=== PATIENT | female | born 1955 | race Caucasian/White ===

== ENCOUNTER 2016-09-23 21:17 | Emergency (ER) | payer OTHER ==
[~2016-09-23] VITALS: Ht 160 cm; Wt 67.3 kg
[~2016-09-23 21:17] MED LIST: ADIPEX-P37.5 M1 PO; ALBUTEROL SULF8.5 GM IH; AMITRIPTYLINE HCL; AMLODIPINE BES2.5 MG PO; BUMETANIDE2 MG PO; BUMEX2 MG; BUPROPION XL150 MG PO; BUPROPION XL300 MG PO; CITALOPRAM HBR20 MG PO; CLOBETASOL PROP60 GM TP; DESOXIMETASONE15 G1 TP; ELAVIL75 MG PO; ENDOCET 7.5-321 EACH; ENDOCET 7.5-501 EACH PO; ERGOCALCIF50000 UNIT PO; FENTANYL1 EAC2 TD; GUAIFENESIN WI120 ML PO; HYDROCHLOROTHIA25 MG PO; INDERAL60 MG PO; LEVOTHYROXINE88 MCG PO; LISINOPRIL20 MG PO; LOSARTAN POTASS50 MG PO; MELOXICAM15 MG PO; MICRO-K10 ME2 PO; NAPROXEN SODIU550 MG; OXYCODONE HCL15 MG; OXYCODONE-APAP1 EAC6; PANTOPRAZOLE SO40 MG PO; PRAVASTATIN SOD40 MG PO; PROPRANOLOL HCL60 M1 PO; PROPRANOLOL HCL60 MG PO; SINGULAIR10 MG PO; TIZANIDINE HCL4 MG PO; TOPAMAX100 MG PO; TOPIRAMATE100 MG; VALACYCLOVIR500 MG; VALACYCLOVIR500 MG PO; VICODIN 5-3001 EACH PO; ZANAFLEX4 MG PO; ZOFRAN4 MG PO
[2016-09-23 21:55] LABS: EOSINOPHIL (%) 1.6 % (0-5); EOSINOPHIL COUNT 0.1 K/uL (0-0.3); HEMATOCRIT 35.9 % (36.0-46.0); IMMATURE GRANULOCYTE (%) 0.3 % (0.0-0.7); INSTRUMENT ABS NEUTROPHIL CT 4.8 K/uL; LYMPHOCYTE COUNT 1.9 K/uL (1.0-2.8); MCH 31.8 PG (29.0-34.0); MCHC 32.9 G/DL (30.0-36.0); MCV 96.8 FL (83-99); MEAN PLAT.VOLUME 10.1 uM^3 (9.5-12.4); MONOCYTE (%) 7.5 % (3-12); MONOCYTE COUNT 0.6 K/uL (0-0.8); NEUTROPHIL (%) 64.3 % (45-76); NEUTROPHIL COUNT 4.8 K/uL (1.8-6.4); PLATELET COUNT 281 K/uL (156-360); RBC DIS.WIDTH-CV 14.1 % (11.8-14.6); RBC DIS.WIDTH-SD 50.1 % (39-53); RED BLOOD COUNT 3.71 M/uL (3.80-5.20); WHITE BLOOD COUNT 7.5 K/uL (4.1-10.2)
[2016-09-23 22:06] LABS: CHLORIDE 102 mEq/L (99-109); POTASSIUM 2.8 mEq/L (3.7-5.4)
[2016-09-23 22:07] LABS: SODIUM 138 mEq/L (136-147)
[2016-09-23 22:09] LABS: GLUCOSE 85 mg/dL (70-99)
[2016-09-23 22:10] LABS: ANION GAP 12 MEQ/L (2-14)
[2016-09-23 22:11] LABS: TOTAL BILIRUBIN 0.4 mg/dL (0.0-1.0)
[2016-09-23 22:12] LABS: ALKALINE PHOSPHATASE 111 IU/L (3-129); GFR ESTIMATE (CALCULATED) 49 mL/min/
[2016-09-23 22:14] LABS: UREA NITROGEN (BUN) 13 mg/dL (9-23)
[2016-09-23 22:16] LABS: LIPASE 13 U/L (1.0-51.0)
[2016-09-23 23:17] LABS: CREATINE KINASE 240 IU/L (1-294)
[2016-09-24 02:09] LABS: BILIRUBIN NEGATIVE; BLOOD NEGATIVE; COLOR YELLOW ((YELLOW)); GLUCOSE (STRIP) NEGATIVE; KETONES 20; LEUKOCYTES NEGATIVE; NITRITE NEGATIVE; PROTEIN (STRIP) 30; SPECIFIC GRAVITY 1.018 (1.000-1.030); UROBILINOGEN 0.2 MG/DL (0.2-1.0)
[2016-09-24 02:12] LABS: ADD MIUA? NO
[2016-09-24] MEDS ORDERED: KLOR-CON 1010 ME1 PO (02:17)
[2016-09-24] MEDS ORDERED: PHENERGAN25 MG PR (02:17)
[2016-09-24] MEDS ORDERED: PROMETHAZINE HC25 M1 PO (02:17)
[2016-09-24 02:35] VITALS: BP 109/63
== END 2016-09-24 02:35 | disposition home or self-care (01) ==
LOC: EME 21:17
PROVIDERS: Physician Assistant
DX: R11.2 Nausea with vomiting, unspecified (principal); E87.6 Hypokalemia; I10 Essential (primary) hypertension; Z90.710 Acquired absence of both cervix and uterus; Z90.49 Acquired absence of other specified parts of digestive tract; F17.200 Nicotine dependence, unspecified, uncomplicated
CPT/HCPCS: 74022; 74176; 74177; 80053; 81003; 82550; 83605; 83690; 85025; 93005; 99281; 99285; J1200; J2765; J3480; J7030; Q0169

== ENCOUNTER 2017-03-18 15:45 | Emergency (ER) | payer OTHER ==
[~2017-03-18] VITALS: Ht 160 cm; Wt 64.6 kg
[~2017-03-18 15:45] MED LIST changes: +KLOR-CON 1010 ME1 PO; +PHENERGAN25 MG PR; +PROMETHAZINE HC25 M1 PO
[2017-03-18 16:39] LABS: EOSINOPHIL (%) 3.4 % (0-5); EOSINOPHIL COUNT 0.2 K/uL (0-0.3); HEMATOCRIT 34.6 % (36.0-46.0); IMMATURE GRANULOCYTE (%) 0.4 % (0.0-0.7); INSTRUMENT ABS NEUTROPHIL CT 3.6 K/uL; LYMPHOCYTE COUNT 1.5 K/uL (1.0-2.8); MCH 32.8 PG (29.0-34.0); MCHC 33.2 G/DL (30.0-36.0); MCV 98.6 FL (83-99); MEAN PLAT.VOLUME 10.6 uM^3 (9.5-12.4); MONOCYTE COUNT 0.3 K/uL (0-0.8); NEUTROPHIL (%) 63.1 % (45-76); NEUTROPHIL COUNT 3.6 K/uL (1.8-6.4); PLATELET COUNT 232 K/uL (156-360); RBC DIS.WIDTH-CV 14.6 % (11.8-14.6); RBC DIS.WIDTH-SD 53.1 % (39-53); RED BLOOD COUNT 3.51 M/uL (3.80-5.20); WHITE BLOOD COUNT 5.7 K/uL (4.1-10.2)
[2017-03-18 16:45] LABS: ADD MEDTOX COMMENT Y; AMPHETAMINE PRESUMPTIVE POSITIVE (500 ng/mL); BARBITURATES NEGATIVE (200 ng/mL); BENZODIAZEPINES NEGATIVE (150 ng/mL); COCAINE NEGATIVE (150 ng/mL); INTERNAL CONTROLS VALID? YES; METHADONE NEGATIVE (200 ng/mL); METHAMPHETAMINE NEGATIVE (500 ng/mL); OPIATES (MORPHINE) NEGATIVE (100 ng/mL); OXYCODONE PRESUMPTIVE POSITIVE (100 ng/mL); PHENCYCLIDINE NEGATIVE (25 ng/mL); PROPOXYPHENE NEGATIVE (300 ng/mL); THC CANNABINOIDS NEGATIVE (50 ng/mL); TRICYCLIC ANTIDEPRESSANTS PRESUMPTIVE POSITIVE (300 ng/mL)
[2017-03-18 16:49] LABS: CHLORIDE 107 mEq/L (99-109); POTASSIUM 3.5 mEq/L (3.7-5.4); SODIUM 141 mEq/L (136-147)
[2017-03-18 16:52] LABS: GLUCOSE 100 mg/dL (70-99)
[2017-03-18 16:53] LABS: ANION GAP 9 MEQ/L (2-14); TOTAL BILIRUBIN 0.2 mg/dL (0.0-1.0)
[2017-03-18 16:54] LABS: SERUM ETHYL ALCOHOL < 10 mg/dL
[2017-03-18 16:55] LABS: ALKALINE PHOSPHATASE 79 IU/L (3-129); GFR ESTIMATE (CALCULATED) 38 mL/min/
[2017-03-18 16:56] LABS: UREA NITROGEN (BUN) 15 mg/dL (9-23)
[2017-03-18 23:11] VITALS: BP 99/55
== END 2017-03-18 23:12 | disposition home or self-care (01) ==
LOC: EME 15:45
PROVIDERS: Emergency Medicine
DX: R56.9 Unspecified convulsions (principal); R55 Syncope and collapse; R51 Headache; I12.9 Hypertensive chronic kidney disease with stage 1 through stage 4 chronic kidney disease, or unspecified chronic kidney disease; N18.3 Chronic kidney disease, stage 3 (moderate); E11.22 Type 2 diabetes mellitus with diabetic chronic kidney disease; E06.3 Autoimmune thyroiditis; F17.200 Nicotine dependence, unspecified, uncomplicated; K21.9 Gastro-esophageal reflux disease without esophagitis
CPT/HCPCS: 70450; 80053; 84443; 84999; 85025; 99281; 99285; G0480; J1885; J2765; J7030

== ENCOUNTER 2017-11-04 05:29 | Observation (INO) | payer OTHER ==
[~2017-11-04] VITALS: Ht 160 cm; Wt 68.8 kg
[~2017-11-04 05:29] MED LIST changes: +LEVOTHYROXINE100 MCG PO; -LEVOTHYROXINE88 MCG PO; +PROAIR RESPICL90 MCG IH; -PROPRANOLOL HCL60 M1 PO; +VENTOLIN HFA18 GM IH; +WELLBUTRIN XL150 MG PO
[2017-11-04 06:54] LABS: HEMATOCRIT 33.9 % (36.0-46.0); HEMOGLOBIN 11.1 G/DL (11.9-15.5); MCH 33.3 PG (29.0-34.0); MCHC 32.7 G/DL (30.0-36.0); MCV 101.8 FL (83-99); PLATELET COUNT 208 K/uL (156-360); RBC DIS.WIDTH-SD 56.4 % (39-53); RED BLOOD COUNT 3.33 M/uL (3.80-5.20); WHITE BLOOD COUNT 6.6 K/uL (4.1-10.2)
[2017-11-04 07:32] LABS: TROP-I INTERPRETATION NEGATIVE; TROPONIN-I < 0.01 ng/mL (0.0-0.30)
[2017-11-04 07:37] LABS: CHLORIDE 111 MEQ/L (99-109); CREATININE 1.1 MG/DL (0.6-1.3); GFR ESTIMATE (CALCULATED) 54 mL/min/; GLUCOSE 100 mg/dL (70-99); POTASSIUM 3.6 MEQ/L (3.7-5.4); SODIUM 142 MEQ/L (136-147); UREA NITROGEN (BUN) 15 mg/dL (9-23)
[2017-11-04] MEDS ORDERED: PRAVASTATIN SOD40 MG PO (07:49)
[2017-11-04] MEDS ORDERED: OXYCODONE-APAP1 EACH PO (07:50)
[2017-11-04] MEDS ORDERED: DICYCLOMINE HCL10 MG PO (07:51)
[2017-11-04] MEDS ORDERED: KLOR-CON 1010 ME1 PO (07:52)
[2017-11-04] MEDS ORDERED: PROMETHAZINE HC25 M1 PO (07:53)
[2017-11-04] MEDS ORDERED: ALBUTEROL2.5 MG/3 M IH (07:54)
[2017-11-04] MEDS ORDERED: SYMBICORT60 INHALAT IH (07:54)
[2017-11-04] MEDS ORDERED: QUETIAPINE FUM100 MG PO (07:55)
[2017-11-04] MEDS ORDERED: NIFEDIPINE ER30 MG PO (07:55)
[2017-11-04] MEDS ORDERED: CITALOPRAM HBR20 MG PO (07:56)
[2017-11-04] MEDS ORDERED: ERGOCALCIF50000 UNIT PO (07:56)
[2017-11-04] MEDS ORDERED: DESOXIMETASONE15 G1 TP (07:58)
[2017-11-04 09:15] LABS: APPEARANCE CLEAR ((CLEAR)); BILIRUBIN NEGATIVE; BLOOD NEGATIVE; COLOR YELLOW ((YELLOW)); GLUCOSE (STRIP) NEGATIVE; KETONES NEGATIVE; LEUKOCYTES NEGATIVE; NITRITE NEGATIVE; PROTEIN (STRIP) NEGATIVE; UCUL ADDED? NO; UROBILINOGEN 0.2 MG/DL (0.2-1.0)
[2017-11-04 10:01] LABS: IMM.RETIC FRACTION 15.2 % (3-19); RETIC HGB EQUIVALENT 43.5 (28-36); RETICULOCYTE COUNT 1.6 % (0.5-1.8)
[2017-11-04 10:03] LABS: IRON 53 MCG/DL (35-150); TRANSFERRIN (TIBC) 217.3 mg/dL (215-380); TRANSFERRIN SATUR. 24 % (20-55)
[2017-11-04 10:07] VITALS: BP 102/60
[2017-11-04 10:20] LABS: FERRITIN 18 NG/ML (10-291)
[2017-11-04 11:31] LABS: TROP-I INTERPRETATION NEGATIVE; TROPONIN-I < 0.01 ng/mL (0.0-0.30)
[2017-11-04 11:53] LABS: FOLIC ACID (FOLATE) 5.6 NG/ML (5.0-22.0)
[2017-11-04 12:01] VITALS: BP 101/57
[2017-11-04 16:26] VITALS: BP 105/60
[2017-11-04 18:33] LABS: TROP-I INTERPRETATION NEGATIVE; TROPONIN-I < 0.01 ng/mL (0.0-0.30)
[2017-11-04 20:20] VITALS: BP 103/64
[2017-11-05 00:01] VITALS: BP 92/54
[2017-11-05 00:55] LABS: TROP-I INTERPRETATION NEGATIVE; TROPONIN-I < 0.01 ng/mL (0.0-0.30)
[2017-11-05 05:05] VITALS: BP 124/70
[2017-11-05 08:02] VITALS: BP 104/69
[2017-11-05 08:51] LABS: HEMATOCRIT 36.4 % (36.0-46.0); HEMOGLOBIN 11.1 G/DL (11.9-15.5); MCH 32.4 PG (29.0-34.0); MCHC 30.5 G/DL (30.0-36.0); MCV 106.1 FL (83-99); PLATELET COUNT 219 K/uL (156-360); RBC DIS.WIDTH-CV 15.3 % (11.8-14.6); RBC DIS.WIDTH-SD 60.3 % (39-53); RED BLOOD COUNT 3.43 M/uL (3.80-5.20); WHITE BLOOD COUNT 8.2 K/uL (4.1-10.2)
[2017-11-05 09:09] LABS: CHLORIDE 111 MEQ/L (99-109); CREATININE 1.2 MG/DL (0.6-1.3); GFR ESTIMATE (CALCULATED) 49 mL/min/; GLUCOSE 85 mg/dL (70-99); MAGNESIUM 2.1 mg/dl (1.3-2.7); SODIUM 142 MEQ/L (136-147); UREA NITROGEN (BUN) 17 mg/dL (9-23)
[2017-11-05 09:26] LABS: POTASSIUM 5.3 MEQ/L (3.7-5.4)
[2017-11-05 11:57] VITALS: BP 112/62
[2017-11-05 15:47] VITALS: BP 136/61
[2017-11-05 20:00] VITALS: BP 103/57
[2017-11-06 00:40] VITALS: BP 114/62
[2017-11-06 04:27] VITALS: BP 109/56
[2017-11-06 05:26] LABS: BASOPHIL (%) 0.6 % (0-1); BASOPHIL COUNT 0.1 K/uL (0-0.1); EOSINOPHIL (%) 5.2 % (0-5); EOSINOPHIL COUNT 0.4 K/uL (0-0.3); HEMATOCRIT 34.1 % (36.0-46.0); HEMOGLOBIN 10.7 G/DL (11.9-15.5); IMMATURE GRANULOCYTE (%) 0.2 % (0.0-0.7); LYMPHOCYTE (%) 30.7 % (15-42); LYMPHOCYTE COUNT 2.5 K/uL (1.0-2.8); MCH 32.8 PG (29.0-34.0); MCHC 31.4 G/DL (30.0-36.0); MCV 104.6 FL (83-99); MONOCYTE (%) 6.6 % (3-12); MONOCYTE COUNT 0.5 K/uL (0-0.8); NEUTROPHIL (%) 56.7 % (45-76); NEUTROPHIL COUNT 4.7 K/uL (1.8-6.4); PLATELET COUNT 201 K/uL (156-360); RBC DIS.WIDTH-CV 14.8 % (11.8-14.6); RBC DIS.WIDTH-SD 57.4 % (39-53); RED BLOOD COUNT 3.26 M/uL (3.80-5.20); WHITE BLOOD COUNT 8.2 K/uL (4.1-10.2)
[2017-11-06 05:57] LABS: CHLORIDE 108 MEQ/L (99-109); CREATININE 1.1 MG/DL (0.6-1.3); GFR ESTIMATE (CALCULATED) 54 mL/min/; GLUCOSE 76 mg/dL (70-99); POTASSIUM 5.2 MEQ/L (3.7-5.4); SODIUM 138 MEQ/L (136-147); UREA NITROGEN (BUN) 17 mg/dL (9-23)
[2017-11-06 07:40] VITALS: BP 122/59
[2017-11-06] MEDS ORDERED: FOLIC ACID1 MG PO (09:10)
[2017-11-06] MEDS ORDERED: CYANOCOBAL1000 MCG/2 SC (09:12)
[2017-11-06 11:47] VITALS: BP 104/53
== END 2017-11-06 12:24 | disposition home or self-care (01) ==
LOC: EME 05:29 → EDOF 08:08 → ENRESERV 08:09 → 4SOUTH 09:53
PROVIDERS: Hospitalist; Internal Medicine
DX: R07.89 Other chest pain (principal); F33.1 Major depressive disorder, recurrent, moderate; E53.8 Deficiency of other specified B group vitamins; I95.1 Orthostatic hypotension; E87.6 Hypokalemia; E86.0 Dehydration; R94.31 Abnormal electrocardiogram [ECG] [EKG]; E78.5 Hyperlipidemia, unspecified; D64.9 Anemia, unspecified; F17.210 Nicotine dependence, cigarettes, uncomplicated; I12.9 Hypertensive chronic kidney disease with stage 1 through stage 4 chronic kidney disease, or unspecified chronic kidney disease; N18.3 Chronic kidney disease, stage 3 (moderate); K22.70 Barrett's esophagus without dysplasia; R60.0 Localized edema; R06.02 Shortness of breath; R11.2 Nausea with vomiting, unspecified; R42 Dizziness and giddiness; R00.2 Palpitations; E03.9 Hypothyroidism, unspecified; G89.29 Other chronic pain; M54.9 Dorsalgia, unspecified; Z79.891 Long term (current) use of opiate analgesic; J45.909 Unspecified asthma, uncomplicated; I07.1 Rheumatic tricuspid insufficiency; Z90.49 Acquired absence of other specified parts of digestive tract; Z90.710 Acquired absence of both cervix and uterus; Z82.49 Family history of ischemic heart disease and other diseases of the circulatory system; Z83.3 Family history of diabetes mellitus
CPT/HCPCS: 71046; 80048; 81003; 82607; 82728; 82746; 83540; 83735; 84466; 84484; 85025; 85027; 85046; 85379; 93005; 94640; 94640 76; 99202; 99281; 99285; G0378; J1650; J3420; J7030